=== PATIENT | female | born 1960 | race Caucasian/White ===

== ENCOUNTER 2025-02-02 17:20 | Emergency (ER) | payer OTHER ==
--- OUTSIDE RECORDS SUMMARY | 2025-02-02 17:22 | XMS REPORT | Continuity of Care Document ---
Author Name Unknown Address [address] [place], [place] [address] [address] [place] [address] [place] [id number] Care Team Providers Care Front End Alignment Specialist Name Role Phone Unavailable Unavailable Unavailable
[2025-02-02] MEDS ORDERED: KETOROLAC 30 MG/ML INJ ONE (18:59)
[2025-02-02] MEDS ORDERED: methocarbamoL 750 MG TAB ONE (18:59)
--- NOTE | 2025-02-02 18:59 | RAD REPORT ---
EXAMINATION: XR RIGHT SHOUDLER CLINICAL INDICATION: Female, 64 years old. PAIN RIGHT TECHNIQUE: Multiple views of the right shoulder were obtained. COMPARISON: No prior exam. FINDINGS: Tiny calcification distal supraspinatus. This may indicate minimal calcific tendinitis. Ot herwise no fracture, dislocation or worrisome bone lesion.
--- NOTE | 2025-02-02 19:35 | EDPHYS ---
Physician Documentation [facility] Name: Delfina Quiroz Age: 64 yrs Sex: Female : 1960 Arrival Date: 02/02/2025 Time: 17:20 Bed DX3 Private MD: ED Physician Giuseppe Hunt HPI: 02/02 18:15 This 64 yrs old Female presents to ER via Ambulatory with complaints of Shoulder cp Injury, Shoulder Pain. 18:15 The patient or guardian complains of an injury, pain, that is acute. right shoulder. cp Context: resulted from lifting heavy box. Onset: The symptoms/episode began/occurred today. Associated signs and symptoms: Pertinent negatives: chest pain, neck pain, Numbness in right hand and right arm. Patient reports history of right shoulder pain and has upcoming appt with ortho, DR Mosley for evaluation of right shoulder pain. Historical: - Allergies: 18:00 Codeine; jl7 - Home Meds: 18:00 Lamictal 200 mg Oral tablet [Active]; prazosin 2 mg Oral capsule [Active]; venlafaxine jl7 75 mg oral tablet [Active]; - PMHx: 18:00 Anxiety; Depressive disorder; jl7 - Immunization history:: Adult Immunizations unknown. - Infectious Disease History:: Denies. - Social history:: Smoking status: Patient denies any tobacco usage or history of. ROS: 18:20 MS/extremity: Positive for decreased range of motion, pain, of the right shoulder, cp 18:20 Constitutional: Negative for body aches, chills, fever, poor PO intake, cp 18:20 Neck: Negative for pain with movement, pain at rest, stiffness, 18:20 Cardiovascular: Negative for chest pain, edema, palpitations, 18:20 Respiratory: Negative for cough, shortness of breath, wheezing, 18:20 Abdomen/GI: Negative for abdominal pain, nausea, vomiting, and diarrhea, 18:20 Back: Negative for pain at rest, pain with movement, 18:20 Neuro: Negative for numbness, weakness, 18:20 All other systems are negative, Exam: 18:25 Constitutional: The patient appears in no acute distress, alert, awake, cp non-diaphoretic, non-toxic, well developed, well nourished, uncomfortable, 18:25 Head/Face: Normocephalic, atraumatic. cp 18:25 Neck: C-spine: vertebral tenderness, is not appreciated, crepitus, is not appreciated, ROM/movement: is normal, is supple, without pain, no range of motions limitations, 18:25 Chest/axilla: Inspection: normal, Palpation: is normal, no crepitus, no tenderness, 18:25 Cardiovascular: Rate: normal, Pulses: Pulses are 2+ in right radial artery. 18:25 Respiratory: the patient does not display signs of respiratory distress, Respirations: normal, no use of accessory muscles, no retractions, labored breathing, is not present, Breath sounds: are clear throughout, no decreased breath sounds, no stridor, no wheezing, 18:25 Back: vertebral tenderness, is not appreciated, 18:25 Musculoskeletal/extremity: Extremities: noted in the right shoulder: pain, tenderness, lateral side of shoulder, pain with lateral raise and rotation, There is no evidence of decreased ROM, deformity, ROM: limited passive range of motion due to pain, in the right shoulder, Vital Signs: 17:58 BP 156 / 104; Pulse 86; Resp 17; Pulse Ox 95% ; Weight 80.74 kg; Height 5 ft. 4 in. ; jl7 Pain 10/10; 17:58 Body Mass Index 30.55 (80.74 kg, 162.56 cm) jl7 17:58 Pain Scale: Adult jl7 MDM: 17:48 Medical Screening Exam initiated brian 19:00 Differential diagnosis: Anterior dislocation with fracture, Anterior dislocation cp without fracture, Posterior dislocation with fracture, Posterior dislocation without fracture, tendonitis, rotator cuff tear, bursitis. 19:33 Data reviewed: vital signs, nurses notes, radiologic studies, plain films, and as a cp result, I will discharge patient. 19:33 I considered the following discharge prescriptions or medication management in the cp emergency department Medications were administered in the Emergency Department. See MAR. Counseling: I had a detailed discussion with the patient and/or guardian regarding the historical points, exam findings, and any diagnostic results supporting the discharge/admit diagnosis, radiology results, to return to the emergency department if symptoms worsen or persist or if there are any questions or concerns that arise at home. Response to treatment: the patient's symptoms have mildly improved after treatment, and as a result, I will discharge patient. 02/02 18:08 Order name: XRAY Shoulder RIGHT 2 view; Complete Time: 19:50 cp 02/02 19:50 Interpretation: Reviewed. cp 02/02 18:08 Order name: Slshannon; Complete Time: 18:23 cp Administered Medications: 19:04 Drug: Ketorolac IM 30 mg IM once Route: IM; Site: left deltoid; ha1 19:53 Follow up: Response: No adverse reaction; Pain is decreased kb3 19:04 Drug: Methocarbamol PO 750 mg PO once Route: PO; ha1 19:52 Follow up: Response: No adverse reaction; Pain is decreased kb3 Disposition: 02/03 19:37 Chart complete. cp Disposition Summary: 02/02/25 19:34 Discharge Ordered Notes: Location: Home cp Problem: new cp Symptoms: have improved cp Condition: Stable cp Diagnosis - Pain in right shoulder cp Followup: cp - With: Del Mosley MD - When: 5 - 6 days - Reason: Recheck today's complaints Discharge Instructions: - Discharge Summary Sheet cp - Shoulder Pain cp - Shoulder Range of Motion Exercises cp Forms: - Medication Reconciliation Form cp - Antibiotic Education cp - Prescription Opioid Use cp - Patient Portal Instructions cp - Leadership Thank You Letter cp Prescriptions: - Ibuprofen 800 mg Oral Tablet - take 1 tablet ORAL route every 8 hours As needed take with food; 30 tablet; cp Refills: 0, Product Selection Permitted - methocarbamol 750 mg Oral tablet - take 1 tablet ORAL route 3 times per day; 30 tablet; Refills: 0, Product cp Selection Permitted Addendum: 02/05/2025 22:45 Co-signature as Attending Physician, Giuseppe Hunt MD I agree with the assessment and c torres plan of care. Signatures: Dispatcher [employer] Giuseppe Bunch MD MD cha Page, Corey, PA PA cp Marilou Frias RN RN jl7 Shanell Hernandez RN RN ha1 Renae Crowe RN kb3 Corrections: (The following items were deleted from the chart) 02/02 18: 18:00 Allergies: No Known Allergies; jl7 jl7 18: 18:00 Home Meds: None; jl7 jl7 18: 18:00 PMHx: None; jl7 jl7
--- NOTE | 2025-02-02 19:35 | ER ---
Nurse's Notes [facility] Name: Delfina Quiroz Age: 64 yrs Sex: Female : 1960 Arrival Date: 02/02/2025 Time: 17:20 Bed DX3 Private MD: Diagnosis: Pain in right shoulder Presentation: 02/02 17:58 Chief complaint: Patient states: Aggravated right shoulder injury. Coronavirus screen: jl7 At this time, the client does not indicate any symptoms associated with coronavirus-19. Ebola Screen: No symptoms or risks identified at this time. Initial Sepsis Screen: Does the patient meet any 2 criteria? No. Patient's initial sepsis screen is negative. Does the patient have a suspected source of infection? No. Patient's initial sepsis screen is negative. Risk Assessment: Do you want to hurt yourself or someone else? Patient reports no desire to harm self or others. Onset of symptoms is unknown. 17:58 Method Of Arrival: Ambulatory [facility] 17:58 Acuity: EDNA 4 jl7 Triage Assessment: 18:00 General: Appears in no apparent distress. uncomfortable, Behavior is cooperative, jl7 crying. Pain: Complains of pain in anterior aspect of right shoulder Pain currently is 10 out of 10 on a pain scale. Musculoskeletal: Swelling absent. Injury Description: pain. Historical: - Allergies: 18:00 Codeine; jl7 - Home Meds: 18:00 Lamictal 200 mg Oral tablet [Active]; prazosin 2 mg Oral capsule [Active]; venlafaxine jl7 75 mg oral tablet [Active]; - PMHx: 18:00 Anxiety; Depressive disorder; jl7 - Immunization history:: Adult Immunizations unknown. - Infectious Disease History:: Denies. - Social history:: Smoking status: Patient denies any tobacco usage or history of. Screenin:[address] [facility] ED Fall Risk Assessment (Adult) History of falling in the last 3 months, kb3 including since admission No falls in past 3 months (0 pts) Confusion or Disorientation No (0 pts) Intoxicated or Sedated No (0 pts) Impaired Gait No (0 pts) Mobility Assist Device Used No (0 pt) Altered Elimination No (0 pt) Score/Fall Risk Level 0 - 2 = Low Risk Oriented to surroundings. Abuse screen: Denies threats or abuse. Denies injuries from another. Nutritional screening: No deficits noted. Tuberculosis screening: No symptoms or risk factors identified. Assessment: 19:04 Reassessment: Patient and/or family updated on plan of care and expected duration. Pain ha1 level reassessed. Patient is alert, oriented x 3, equal unlabored respirations, skin warm/dry/pink. pain left arm pain 9/10. Vital Signs: 17:58 BP 156 / 104; Pulse 86; Resp 17; Pulse Ox 95% ; Weight 80.74 kg; Height 5 ft. 4 in. ; jl7 Pain 10/10; 17:58 Body Mass Index 30.55 (80.74 kg, 162.56 cm) jl7 17:58 Pain Scale: Adult jl7 ED Course: 17:25 Patient arrived in ED. im 17:32 Giuseppe Bowling PA is PHCP. cp 17:32 Giuseppe Hunt MD is Attending Physician. cp 18:00 Triage completed. jl7 18:00 Arm band placed on right wrist. jl7 18:06 Jessa Moulton, UTE is Primary Nurse. me1 18:23 Sling applied to right arm. jl7 18:41 XRAY Shoulder RIGHT 2 view In Process Unspecified. EDMS 19:33 Del Mosley MD is Referral Physician. cp 19:53 Patient has correct armband on for positive identification. Provided Education on: POC. kb3 19:53 No provider procedures requiring assistance completed. kb3 19:54 Patient did not have IV access during this emergency room visit. kb3 Administered Medications: 19:04 Drug: Ketorolac IM 30 mg IM once Route: IM; Site: left deltoid; ha1 19:53 Follow up: Response: No adverse reaction; Pain is decreased kb3 19:04 Drug: Methocarbamol PO 750 mg PO once Route: PO; ha1 19:52 Follow up: Response: No adverse reaction; Pain is decreased kb3 Medication: 19:53 VIS not applicable for this client. kb3 Outcome: 19:34 Discharge ordered by . cp 19:54 Discharged to home ambulatory, kb3 19:54 Condition: stable 19:54 Discharge instructions given to patient, Instructed on discharge instructions, follow up and referral plans. medication usage, Demonstrated understanding of instructions, follow-up care, medications, Prescriptions given X 2, 19:54 Patient left the ED. kb3 Signatures: Dispatcher [employer] EDMS Giuseppe Bowling PA PA cp Leal, Jahala, RN RN jl7 Shanell Hernandez RN RN ha1 Renae Crowe RN RN kb3 Carol Card Michelle RN RN me1 Corrections: (The following items were deleted from the chart) 18: 18:00 Allergies: No Known Allergies; jl7 jl7 18: 18:00 Home Meds: None; jl7 jl7 18: 18:00 PMHx: None; jl7 jl7
[2025-02-02 20:00] VITALS: BP 156/104; O2SAT 95
== END 2025-02-02 19:54 | disposition home or self-care (01) ==
LOC: ER 17:20
DX: M25.511 Pain in right shoulder (principal)
CPT/HCPCS: 96372; 99284